=== PATIENT | female | born 1965 | race Caucasian/White ===

== ENCOUNTER 2021-10-27 18:22 | Inpatient (IN) | payer SELFPAY ==
[2021-10-27 18:34] LABS: #Basophils 0.1 thou/uL (0.0-0.2); #Eosinphils 0.2 thou/uL (0.0-0.7); #Lymphocytes 3.3 thou/uL (1.20-3.40); #Monocytes 0.5 thou/uL (0.11-0.59); #Neutrophils 3.7 thou/uL (1.40-6.50); %Basophils 1.1 % (0.0-1.0); %Eosinophils 2.5 % (0.0-10.0); %Lymphocytes 42.1 % (21.0-51.0); %Monocytes 6.8 % (0.0-10.0); %Neutrophils 47.5 % (42.0-75.0); Hemoglobin 12.9 g/dL (12.0-16.0); Mean Corpuscular HGB CONC 33.3 g/dL (32.0-36.0); Mean Corpuscular Hemoglobin 32.1 pg (27.0-31.0); Mean Corpuscular Volume 96.4 fL (78.0-98.0); Mean Platelet Volume 8.3 fL (7.4-10.4); Platelet Count 218 thou/uL (130-400); RBC Distribution Width 11.2 % (11.5-14.5); Red Blood Cell (RBC) Count 4.01 mill/uL (4.20-5.40); White Blood Cell (WBC) Count 7.9 thou/uL (4.8-10.8)
[2021-10-27] MEDS ORDERED: Rocuronium Bromide 10 MG/ML (10ML VIAL) ONE (18:35)
[2021-10-27] MEDS ORDERED: Propofol 1,000 MG/100 ML VIAL IV ONE (18:36)
[2021-10-27] MEDS ORDERED: niCARdipine 25 MG/10 ML VIAL ONE ×3 (18:52→19:26)
[2021-10-27 18:53] LABS: INR-International Normal Ratio 0.9; PTT 24.3 sec (22.9-36.1); Prothrombin Time 12.5 sec (12.0-14.7)
[2021-10-27 18:54] LABS: ALT (SGPT) 21 U/L (8-55); AST (SGOT) 18 U/L (5-34); Albumin 4.3 g/dL (3.5-5.0); Alkaline Phosphatase 81 U/L (40-110); Anion Gap 14 mmol/L (10-20); BUN (Urea Nitrogen) 14 mg/dL (9.8-20.1); Bilirubin, Total 0.6 mg/dL (0.2-1.2); CK (CPK) 64 U/L (29-168); Calc. Creatinine Clearance 0 mL/min (70-130); Calcium 9.7 mg/dL (7.8-10.44); Carbon Dioxide 24 mmol/L (22-29); Chloride 104 mmol/L (98-107); Globulin 2.8 g/dL (2.4-3.5); Glucose 191 mg/dL (70-105); Protein, Total 7.1 g/dL (6.0-8.3); Sodium 138 mmol/L (136-145)
[2021-10-27 19:13] LABS: Bilirubin Negative (Negative); Blood, Urine Negative (Negative); Clarity Turbid (Clear); Glucose, Urine (Dipstick) 100 mg/dL (Negative); Ketone, Urine Negative (Negative); Leukocyte 25 Leu/uL (Negative); Nitrite Negative (Negative); Protein, Urine (Dipstick) Negative (Neg-Trace); RBC/HPF 0-3 HPF (0-3); Urobilinogen Normal mg/dL (Less than 2)
[2021-10-27 19:14] LABS: Actual Bicarbonate (HCO3a) 26.2 mEq/L (22-28); Base Excess (BEa) 2.2 mEq/L (-2.0 to +3.0); CO2 Tension 38.5 mmHg (35.0-45.0); Calcium, Ionized (arterial) 1.18 mmol/L (1.12-1.30); Carboxyhemoglobin (COHb) 1.3 gm% (0.0-3.0); Hemoglobin (Hb) 12.6 g/dL (12.0-16.0); Potassium - ABG Lab 3.49 mmol/L (3.70-5.30); pH, Arterial 7.45 (7.35-7.45)
[2021-10-27 19:16] LABS: ALV-art Gradient -251.925 mmHg (0-20); O2 Tension (PaO2), arterial 560.3 mmHg (80.0-100.0)
[2021-10-27 19:21] LABS: Bacteria/HPF 1+ HPF (None Seen); Squamous Epithelial 0-3 HPF (0-3); WBC/HPF 0-3 HPF (0-3)
[2021-10-27] MEDS ORDERED: Lorazepam 2 MG/ML VIAL ONE ×3 (19:35→21:06)
[2021-10-27] MEDS ORDERED: Fentanyl 100 MCG/2 ML VIAL ONE ×2 (19:37→19:50)
[2021-10-27] MEDS ORDERED: fentaNYL Citrate/PF 2,000 MCG in Sodium Chloride 0.9% 60 ML IV SCH (20:00)
[2021-10-27] MEDS ORDERED: Midazolam HCl 5 mg/ml Vial ONE (20:26)
[2021-10-27] MEDS ORDERED: Midazolam HCl 2 mg/2 ml Vial ONE (20:27)
[2021-10-27] MEDS ORDERED: niCARdipine 25 MG in Sodium Chloride 0.9% 250 ML 250 ML IVPB SCH (20:30)
[2021-10-27] MEDS ORDERED: DISCONTINUE PREVIOUS NARCOTIC PAIN MEDICATIONS AND BENZODIAZEPINES FS SCH (20:30)
[2021-10-27] MEDS ORDERED: Propofol BOLUS 1,000 MG/100 ML VIAL IV PRN (20:30)
[2021-10-27] MEDS ORDERED: Propofol 1,000 MG/100 ML VIAL IV PRN (20:30)
[2021-10-27] MEDS ORDERED: Fentanyl BOLUS 250 ML IVPB PRN (20:30)
[2021-10-27] MEDS ORDERED: Morphine 4 MG/ML VIAL SLOW IVP PRN (20:30)
[2021-10-27] MEDS ORDERED: Ondansetron PF 4 MG/2 ML Vial IVP PRN (21:01)
[2021-10-27] MEDS ORDERED: Acetaminophen 650 MG Suppository PR PRN (21:01)
[2021-10-27] MEDS ORDERED: Ondansetron ODT 4 MG TAB PO PRN (21:01)
[2021-10-27] MEDS ORDERED: Ventilator Sedation Protocol 1 EACH FS SCH (21:15)
[2021-10-27 22:28] LABS: Troponin I Less than 0.010 ng/mL (< 0.028)
[2021-10-28 01:31] LABS: SARS-CoV-2 NAA Rapid Test Not Detected (NotDetected)
[2021-10-28 01:44] LABS: Troponin I Less than 0.010 ng/mL (< 0.028)
[2021-10-28] MEDS: Lorazepam 2 MG/ML VIAL SLOW IVP PRN (04:10)
[2021-10-28 06:05] LABS: #Lymphocytes 1.2 thou/uL (1.20-3.40); #Monocytes 0.7 thou/uL (0.11-0.59); #Neutrophils 10.5 thou/uL (1.40-6.50); %Basophils 0.2 % (0.0-1.0); %Monocytes 5.7 % (0.0-10.0); %Neutrophils 84.1 % (42.0-75.0); Mean Corpuscular HGB CONC 33.6 g/dL (32.0-36.0); Mean Corpuscular Hemoglobin 33.1 pg (27.0-31.0); Mean Corpuscular Volume 98.5 fL (78.0-98.0); Mean Platelet Volume 8.5 fL (7.4-10.4); Platelet Count 207 thou/uL (130-400); RBC Distribution Width 11.3 % (11.5-14.5); Red Blood Cell (RBC) Count 3.61 mill/uL (4.20-5.40); White Blood Cell (WBC) Count 12.5 thou/uL (4.8-10.8)
[2021-10-28 06:26] LABS: Anion Gap 14 mmol/L (10-20); BUN (Urea Nitrogen) 15 mg/dL (9.8-20.1); Calc. Creatinine Clearance 107 mL/min (70-130); Calcium 9.2 mg/dL (7.8-10.44); Carbon Dioxide 21 mmol/L (22-29); Cardiac Risk 4.5 (Less than 4.5); Chloride 104 mmol/L (98-107); Cholesterol 201 mg/dl (< 200 Desired); Glucose 249 mg/dL (70-105); HDL Cholesterol 45 mg/dL (>60 Neg Risk); LDL Cholesterol, Calculated 91 mg/dL; Potassium 3.9 mmol/L (3.5-5.1); Sodium 135 mmol/L (136-145); Triglycerides 324 mg/dL (Less than 150)
[2021-10-28] MEDS: niCARdipine 25 MG in Sodium Chloride 0.9% 250 ML 250 ML IVPB PRN (08:22)
[2021-10-28] MEDS: Pantoprazole 40 MG VIAL IVP SCH (08:32)
[2021-10-28] MEDS ORDERED: Dextrose 5% in Water 1,000 ML IV PRN (12:27)
[2021-10-28] MEDS ORDERED: Dextrose 50% Abboject 50 ML SYRINGE SLOW IVP PRN (12:27)
[2021-10-28] MEDS: Acetaminophen 325 MG TAB PO PRN (16:31)
[2021-10-28] MEDS: HumaLOG 300 UNITS/3 ML VIAL SC PRN ×2 (17:29→20:14)
[2021-10-29] MEDS: Acetaminophen 325 MG TAB PO PRN ×4 (01:20→12:10)
[2021-10-29] MEDS: HumaLOG 300 UNITS/3 ML VIAL SC PRN ×4 (01:28→19:01)
[2021-10-29] MEDS: niCARdipine 25 MG in Sodium Chloride 0.9% 250 ML 250 ML IVPB PRN ×2 (03:07→09:56)
[2021-10-29 03:47] LABS: #Lymphocytes 1.3 thou/uL (1.20-3.40); #Monocytes 1.3 thou/uL (0.11-0.59); #Neutrophils 13.8 thou/uL (1.40-6.50); %Basophils 0.1 % (0.0-1.0); %Eosinophils 0.1 % (0.0-10.0); %Lymphocytes 7.8 % (21.0-51.0); %Monocytes 7.7 % (0.0-10.0); %Neutrophils 84.3 % (42.0-75.0); Hemoglobin 12.5 g/dL (12.0-16.0); Mean Corpuscular HGB CONC 34.3 g/dL (32.0-36.0); Mean Corpuscular Hemoglobin 32.9 pg (27.0-31.0); Mean Corpuscular Volume 95.9 fL (78.0-98.0); Mean Platelet Volume 8.5 fL (7.4-10.4); Platelet Count 199 thou/uL (130-400); RBC Distribution Width 11.4 % (11.5-14.5); Red Blood Cell (RBC) Count 3.79 mill/uL (4.20-5.40); White Blood Cell (WBC) Count 16.3 thou/uL (4.8-10.8)
[2021-10-29 04:15] LABS: ALT (SGPT) 16 U/L (8-55); AST (SGOT) 15 U/L (5-34); Albumin 3.9 g/dL (3.5-5.0); Alkaline Phosphatase 77 U/L (40-110); Anion Gap 13 mmol/L (10-20); BUN (Urea Nitrogen) 17 mg/dL (9.8-20.1); Bilirubin, Total 0.8 mg/dL (0.2-1.2); Calc. Creatinine Clearance 107 mL/min (70-130); Calcium 9.4 mg/dL (7.8-10.44); Chloride 103 mmol/L (98-107); Glucose 304 mg/dL (70-105); Magnesium 1.9 mg/dL (1.6-2.6); Potassium 3.7 mmol/L (3.5-5.1); Protein, Total 6.9 g/dL (6.0-8.3); Sodium 134 mmol/L (136-145)
[2021-10-29 04:21] LABS: Carbon Dioxide 22 mmol/L (22-29)
[2021-10-29 07:54] LABS: Actual Bicarbonate (HCO3a) 24.1 mEq/L (22-28); Base Excess (BEa) 1.1 mEq/L (-2.0 to +3.0); CO2 Tension 33.8 mmHg (35.0-45.0); Hemoglobin (Hb) 14.8 g/dL (12.0-16.0); O2 Tension (PaO2), arterial 66.1 mmHg (80.0-100.0); Potassium - ABG Lab 3.42 mmol/L (3.70-5.30); pH, Arterial 7.47 (7.35-7.45)
[2021-10-29 08:09] LABS: Puncture Site RRA
[2021-10-29] MEDS: Pantoprazole 40 MG VIAL IVP SCH (08:12)
[2021-10-29] MEDS ORDERED: Mannitol 12.5 GM/50 ML SLOW IVP SCH (09:00)
[2021-10-29] MEDS ORDERED: Electrolyte Replacement Protocol 1 EACH FS PRN (09:14)
[2021-10-29] MEDS ORDERED: Iopamidol 370 76% 100 ML VIAL ONE (09:34)
[2021-10-29] MEDS ORDERED: Magnesium 2 GM/50 ML 2 GM in Premix Bag 1 BAG IVPB SCH (10:00)
[2021-10-29] MEDS: Lorazepam 2 MG/ML VIAL SLOW IVP PRN ×2 (11:44→16:06)
[2021-10-29 12:36] VITALS: BP 132/72
[2021-10-29 13:02] VITALS: BMI 31.4
[2021-10-29] MEDS: Norepinephrine 8 MG/0.9% NS 250 ML IVPB SCH (20:47)
[2021-10-29] MEDS: NPH, Human Insulin Isophane 300 UNIT/3 ML VIAL SC SCH (21:05)
[2021-10-30 03:47] LABS: #Eosinphils 0.1 thou/uL (0.0-0.7); #Lymphocytes 1.6 thou/uL (1.20-3.40); #Monocytes 1.7 thou/uL (0.11-0.59); %Basophils 0.2 % (0.0-1.0); %Eosinophils 0.3 % (0.0-10.0); %Lymphocytes 8.3 % (21.0-51.0); %Monocytes 8.9 % (0.0-10.0); %Neutrophils 82.4 % (42.0-75.0); Hemoglobin 13.8 g/dL (12.0-16.0); Mean Corpuscular HGB CONC 33.1 g/dL (32.0-36.0); Mean Corpuscular Volume 99.7 fL (78.0-98.0); Mean Platelet Volume 8.9 fL (7.4-10.4); Platelet Count 243 thou/uL (130-400); RBC Distribution Width 11.9 % (11.5-14.5); Red Blood Cell (RBC) Count 4.18 mill/uL (4.20-5.40); White Blood Cell (WBC) Count 19.4 thou/uL (4.8-10.8)
[2021-10-30] MEDS: Norepinephrine 8 MG/0.9% NS 250 ML IVPB SCH ×3 (05:07→22:57)
[2021-10-30] MEDS: HumaLOG 300 UNITS/3 ML VIAL SC PRN ×4 (05:29→20:12)
[2021-10-30 06:10] LABS: Albumin 4.2 g/dL (3.5-5.0)
[2021-10-30 06:12] LABS: Chloride 122 mmol/L (98-107)
[2021-10-30 06:13] LABS: Globulin 3.7 g/dL (2.4-3.5); Glucose 466 mg/dL (70-105); Protein, Total 7.9 g/dL (6.0-8.3)
[2021-10-30 06:15] LABS: Anion Gap 16 mmol/L (10-20); Bilirubin, Total 0.5 mg/dL (0.2-1.2); Carbon Dioxide 20 mmol/L (22-29)
[2021-10-30 06:16] LABS: Alkaline Phosphatase 97 U/L (40-110)
[2021-10-30 06:18] LABS: AST (SGOT) 29 U/L (5-34); BUN (Urea Nitrogen) 26 mg/dL (9.8-20.1)
[2021-10-30 06:19] LABS: ALT (SGPT) 20 U/L (8-55); Magnesium 3.1 mg/dL (1.6-2.6)
[2021-10-30 06:23] LABS: Calc. Creatinine Clearance 35 mL/min (70-130); Potassium 2.9 mmol/L (3.5-5.1); Sodium 155 mmol/L (136-145)
[2021-10-30] MEDS ORDERED: Sodium Chloride 0.9% 1,000 ML IV SCH (06:45)
[2021-10-30] MEDS: Potassium Chloride 40 MEQ in Premix Bag 1 BAG IVPB SCH ×2 (07:06→08:10)
[2021-10-30] MEDS: Pantoprazole 40 MG VIAL IVP SCH (08:05)
[2021-10-30] MEDS: NPH, Human Insulin Isophane 300 UNIT/3 ML VIAL SC SCH ×2 (08:05→20:12)
[2021-10-30] MEDS ORDERED: FLU VACC QS2021-22(6MOS UP)/PF 60 MCG/0.5 ML SYRINGE IM ONE (09:00)
[2021-10-30] MEDS: Dextrose 5 %-0.45 % NaCl 1,000 ML IV SCH ×2 (09:15→18:23)
[2021-10-30 14:16] LABS: Anion Gap 15 mmol/L (10-20); BUN (Urea Nitrogen) 26 mg/dL (9.8-20.1); Calc. Creatinine Clearance 40 mL/min (70-130); Calcium 10.3 mg/dL (7.8-10.44); Carbon Dioxide 19 mmol/L (22-29); Glucose 432 mg/dL (70-105); Sodium 157 mmol/L (136-145)
[2021-10-30 14:33] LABS: Chloride 127 mmol/L (98-107)
[2021-10-31] MEDS: HumaLOG 300 UNITS/3 ML VIAL SC PRN ×3 (00:46→14:35)
[2021-10-31] MEDS: Dextrose 5 %-0.45 % NaCl 1,000 ML IV SCH (00:46)
[2021-10-31 04:02] LABS: Hemoglobin 11.8 g/dL (12.0-16.0); Mean Corpuscular HGB CONC 33.2 g/dL (32.0-36.0); Mean Corpuscular Hemoglobin 33.5 pg (27.0-31.0); Mean Platelet Volume 9.2 fL (7.4-10.4); Platelet Count 172 thou/uL (130-400); RBC Distribution Width 12.2 % (11.5-14.5); Red Blood Cell (RBC) Count 3.53 mill/uL (4.20-5.40); White Blood Cell (WBC) Count 12.1 thou/uL (4.8-10.8)
[2021-10-31 04:34] LABS: Band 24 % (5-11); Eosinophils 4 % (0-10); Lymphocytes 17 % (21-51); MDiff Complete? YES; Monocytes 9 % (0-10); Neutrophil 46 % (42-75)
[2021-10-31 04:47] LABS: ALT (SGPT) 27 U/L (8-55); AST (SGOT) 37 U/L (5-34); Albumin 3.3 g/dL (3.5-5.0); Alkaline Phosphatase 106 U/L (40-110); Anion Gap 13 mmol/L (10-20); BUN (Urea Nitrogen) 20 mg/dL (9.8-20.1); Bilirubin, Total 0.3 mg/dL (0.2-1.2); Calc. Creatinine Clearance 56 mL/min (70-130); Carbon Dioxide 21 mmol/L (22-29); Globulin 3.3 g/dL (2.4-3.5); Glucose 318 mg/dL (70-105); Potassium 3.5 mmol/L (3.5-5.1); Protein, Total 6.6 g/dL (6.0-8.3); Sodium 159 mmol/L (136-145)
[2021-10-31 05:12] LABS: Chloride 129 mmol/L (98-107)
[2021-10-31 05:45] LABS: Magnesium 2.3 mg/dL (1.6-2.6)
[2021-10-31] MEDS ORDERED: Potassium Chloride 40 MEQ in Premix Bag 1 BAG IVPB SCH (06:30)
[2021-10-31] MEDS: Dextrose 5% in Water 1,000 ML IV SCH ×2 (06:46→14:53)
[2021-10-31] MEDS: Pantoprazole 40 MG VIAL IVP SCH (09:36)
[2021-10-31] MEDS: Norepinephrine 8 MG/0.9% NS 250 ML IVPB SCH (09:37)
[2021-10-31] MEDS: NPH, Human Insulin Isophane 300 UNIT/3 ML VIAL SC SCH (09:39)
[2021-10-31 13:44] LABS: Potassium 4.5 mmol/L (3.5-5.1)
[2021-10-31 14:43] VITALS: TEMP 98.4
== END 2021-10-31 12:08 | disposition expired | DRG 64 ==
LOC: ERS 18:22 → CCU 19:58 → IMCU/EMU 10-28 09:41 → CCU 10-28 09:43
PROVIDERS: ADMIT Student in an Organized Health Care Education/Training Program; ATTEND Internal Medicine
PROC: 5A1945Z Respiratory Ventilation, 24-96 Consecutive Hours (ICD-10-PCS; principal; 2021-10-27)
PROC: 0D9670Z Drainage of Stomach with Drainage Device, Via Natural or Artificial Opening (ICD-10-PCS; 2021-10-27)
PROC: 0BH17EZ Insertion of Endotracheal Airway into Trachea, Via Natural or Artificial Opening (ICD-10-PCS; 2021-10-27)
PROC: 3E033XZ Introduction of Vasopressor into Peripheral Vein, Percutaneous Approach (ICD-10-PCS; 2021-10-29)
PROC: 02HV33Z Insertion of Infusion Device into Superior Vena Cava, Percutaneous Approach (ICD-10-PCS; 2021-10-29)
PROC: B548ZZA Ultrasonography of Superior Vena Cava, Guidance (ICD-10-PCS; 2021-10-29)
PROC: 3E043XZ Introduction of Vasopressor into Central Vein, Percutaneous Approach (ICD-10-PCS; 2021-10-30)
PROC: 03HY32Z Insertion of Monitoring Device into Upper Artery, Percutaneous Approach (ICD-10-PCS; 2021-10-31)
PROC: 0B9J8ZX Drainage of Left Lower Lung Lobe, Via Natural or Artificial Opening Endoscopic, Diagnostic (ICD-10-PCS; 2021-10-31)
PROC: 0B9F8ZX Drainage of Right Lower Lung Lobe, Via Natural or Artificial Opening Endoscopic, Diagnostic (ICD-10-PCS; 2021-10-31)
DX: I61.1 Nontraumatic intracerebral hemorrhage in hemisphere, cortical (principal); G93.41 Metabolic encephalopathy; J96.00 Acute respiratory failure, unspecified whether with hypoxia or hypercapnia; G93.6 Cerebral edema; G93.5 Compression of brain; N17.9 Acute kidney failure, unspecified; G81.91 Hemiplegia, unspecified affecting right dominant side; I16.1 Hypertensive emergency; E23.2 Diabetes insipidus; Z66 Do not resuscitate; Z20.822 Contact with and (suspected) exposure to COVID-19; R29.810 Facial weakness; R47.81 Slurred speech; E78.5 Hyperlipidemia, unspecified; F17.210 Nicotine dependence, cigarettes, uncomplicated; E11.65 Type 2 diabetes mellitus with hyperglycemia; E86.0 Dehydration; I95.9 Hypotension, unspecified; Z78.1 Physical restraint status; Z28.21 Immunization not carried out because of patient refusal; Z91.19 Patient's noncompliance with other medical treatment and regimen
CPT/HCPCS: 31500; 36415; 36416; 36600; 51702; 70450; 70496; 71045; 78610; 80048; 80053; 80061; 81003; 81015; 82550; 82805; 83735; 83930; 84484; 85025; 85610; 85730; 93005; 93010; 94002; 94003; 96374; 96375; 96376; A9521; C9113; J1815; J2060; J2150; J2250; J2704; J3010; J3475; J3480; J3490; J7042; J7050; J7070; Q9967; U0002

== ENCOUNTER 2021-10-31 15:22 | Day surgery (SDC) | payer OTHER, SELFPAY ==
[2021-10-31 15:43] VITALS: BMI 32.2
[2021-10-31] MEDS ORDERED: Hydrocortisone Sod Succ/PF 500 mg/4 ml Vial SLOW IVP SCH (16:00)
[2021-10-31] MEDS: Sodium Chloride 0.45% 1,000 ML IV SCH ×2 (16:26→21:16)
[2021-10-31 17:19] LABS: Actual Bicarbonate (HCO3a) 22.2 mEq/L (22-28); CO2 Tension 44.6 mmHg (35.0-45.0); Carboxyhemoglobin (COHb) 0.3 gm% (0.0-3.0); O2 Tension (PaO2), arterial 468.6 mmHg (80.0-100.0); Potassium - ABG Lab 4.64 mmol/L (3.70-5.30); pH, Arterial 7.31 (7.35-7.45)
[2021-10-31] MEDS: Phytonadione 10 MG/ML AMP SLOW IVP SCH ×2 (17:21→20:24)
[2021-10-31 17:22] LABS: Puncture Site Arterial Line
[2021-10-31 18:06] LABS: Hemoglobin 11.2 g/dL (12.0-16.0); Hemoglobin 11.3 g/dL (12.0-16.0); Mean Corpuscular HGB CONC 32.6 g/dL (32.0-36.0); Mean Corpuscular Hemoglobin 33.4 pg (27.0-31.0); Platelet Count 160 thou/uL (130-400); RBC Distribution Width 12.5 % (11.5-14.5); Red Blood Cell (RBC) Count 3.36 mill/uL (4.20-5.40); White Blood Cell (WBC) Count 9.7 thou/uL (4.8-10.8)
[2021-10-31] MEDS: Piperacillin/Tazobactam 3.375 GM in Sodium Chloride 0.9% 100 ML IVPB SCH ×2 (18:09→23:08)
[2021-10-31 18:16] LABS: INR-International Normal Ratio 1.3; PTT 40.1 sec (22.9-36.1); Prothrombin Time 16.1 sec (12.0-14.7)
[2021-10-31 18:21] LABS: Band 31 % (5-11); Dohle Bodies SLIGHT; Eosinophils 4 % (0-10); Lymphocytes 12 % (21-51); MDiff Complete? YES; Macrocytosis SLIGHT = 6-15 cells (100X) (0-5/hpf); Metamyelocyte 9 % (0-0); Monocytes 6 % (0-10); Myelocyte 1 % (0-0); Neutrophil 37 % (42-75); Platelet Morphology Comment Appears Adequate; Polychromasia SLIGHT = 2-3 cells (100X) (0-2/hpf); Vacuoles SLIGHT
[2021-10-31 18:22] LABS: Lactic Acid 1.2 mmol/L (0.5-2.2)
[2021-10-31 18:24] LABS: Bilirubin Negative (Negative); Blood, Urine 3+ (Negative); Clarity Turbid (Clear); Glucose, Urine (Dipstick) 30 mg/dL (Negative); Ketone, Urine Negative (Negative); Leukocyte 250 Leu/uL (Negative); Nitrite Negative (Negative); Protein, Urine (Dipstick) 70 mg/dL (Neg-Trace); Specific Gravity, Urine 1.009 (1.002-1.036); Urobilinogen Normal mg/dL (Less than 2); pH, Urine 5.5 (5.0-9.0)
[2021-10-31 18:26] LABS: ALT (SGPT) 29 U/L (8-55); AST (SGOT) 32 U/L (5-34); Albumin 3.1 g/dL (3.5-5.0); Alkaline Phosphatase 115 U/L (40-110); Anion Gap 12 mmol/L (10-20); BUN (Urea Nitrogen) 19 mg/dL (9.8-20.1); Bilirubin, Direct 0.3 mg/dL (0.1-0.3); Bilirubin, Total 0.5 mg/dL (0.2-1.2); CK (CPK) 999 U/L (29-168); Calc. Creatinine Clearance 73 mL/min (70-130); Calcium 9.7 mg/dL (7.8-10.44); Carbon Dioxide 22 mmol/L (22-29); Globulin 3.2 g/dL (2.4-3.5); Glucose 173 mg/dL (70-105); Lipase 5 U/L (8-78); Phosphorus 3.2 mg/dL (2.3-4.7); Potassium 4.6 mmol/L (3.5-5.1); Protein, Total 6.3 g/dL (6.0-8.3); Sodium 155 mmol/L (136-145)
[2021-10-31 18:30] LABS: Troponin I 0.016 ng/mL (< 0.028)
[2021-10-31 18:42] LABS: CKMB 8.3 ng/mL (0-6.6); Chloride 126 mmol/L (98-107)
[2021-10-31] MEDS ORDERED: Magnesium 2 GM/50 ML 2 GM in Premix Bag 1 BAG IVPB SCH (18:45)
[2021-10-31] MEDS ORDERED: Norepinephrine 8 MG/0.9% NS 250 ML IVPB SCH (19:00)
[2021-10-31] MEDS: Albuterol Sulfate 2.5 mg/0.5 ml Neb NEB SCH ×2 (19:16→22:55)
[2021-10-31 20:02] LABS: Hemoglobin 11.9 g/dL (12.0-16.0); Mean Corpuscular HGB CONC 32.6 g/dL (32.0-36.0); Mean Corpuscular Hemoglobin 33.5 pg (27.0-31.0); Mean Platelet Volume 8.8 fL (7.4-10.4); Platelet Count 167 thou/uL (130-400); RBC Distribution Width 12.5 % (11.5-14.5); Red Blood Cell (RBC) Count 3.55 mill/uL (4.20-5.40)
[2021-10-31 20:08] LABS: INR-International Normal Ratio 1.3; PTT 40.2 sec (22.9-36.1); Prothrombin Time 16.1 sec (12.0-14.7)
[2021-10-31 20:12] LABS: Lactic Acid 1.4 mmol/L (0.5-2.2)
[2021-10-31 20:18] LABS: ALT (SGPT) 28 U/L (8-55); AST (SGOT) 31 U/L (5-34); Albumin 3.2 g/dL (3.5-5.0); Alkaline Phosphatase 117 U/L (40-110); Anion Gap 15 mmol/L (10-20); BUN (Urea Nitrogen) 19 mg/dL (9.8-20.1); Bilirubin, Direct 0.4 mg/dL (0.1-0.3); Bilirubin, Total 0.7 mg/dL (0.2-1.2); CK (CPK) 974 U/L (29-168); Calc. Creatinine Clearance 68 mL/min (70-130); Calcium 9.6 mg/dL (7.8-10.44); Carbon Dioxide 20 mmol/L (22-29); Chloride 124 mmol/L (98-107); Globulin 3.4 g/dL (2.4-3.5); Glucose 190 mg/dL (70-105); Lipase 6 U/L (8-78); Magnesium 1.8 mg/dL (1.6-2.6); Phosphorus 3.5 mg/dL (2.3-4.7); Potassium 4.8 mmol/L (3.5-5.1); Protein, Total 6.6 g/dL (6.0-8.3); Sodium 154 mmol/L (136-145)
[2021-10-31 20:20] LABS: Troponin I 0.024 ng/mL (< 0.028)
[2021-10-31 20:24] LABS: CKMB 8.6 ng/mL (0-6.6)
[2021-10-31] MEDS: Vasopressin 20 UNIT, Admixture Fee 1 EACH in Sodium Chloride 0.9% 50 ML IV SCH (20:39)
[2021-10-31 20:40] LABS: Band 36 % (5-11); Eosinophils 9 % (0-10); Lymphocytes 17 % (21-51); MDiff Complete? YES; Macrocytosis SLIGHT = 6-15 cells (100X) (0-5/hpf); Metamyelocyte 9 % (0-0); Monocytes 5 % (0-10); Myelocyte 4 % (0-0); Neutrophil 20 % (42-75); Platelet Morphology Comment Appears Adequate; Polychromasia SLIGHT = 2-3 cells (100X) (0-2/hpf)
[2021-10-31] MEDS: HUMULIN R 100 UNITS in Sodium Chloride 0.9% 100 ML IVPB SCH (20:40)
[2021-10-31] MEDS: Hydrocortisone Sod Succ/PF 100 mg/2 ml Vial IVP SCH (21:16)
[2021-10-31 23:43] LABS: Actual Bicarbonate (HCO3a) 20.8 mEq/L (22-28); Base Excess (BEa) -5.7 mEq/L (-2.0 to +3.0); CO2 Tension 45.2 mmHg (35.0-45.0); Calcium, Ionized (arterial) 1.28 mmol/L (1.12-1.30); Carboxyhemoglobin (COHb) 0.3 gm% (0.0-3.0); Hemoglobin (Hb) 11.3 g/dL (12.0-16.0); O2 Tension (PaO2), arterial 99.3 mmHg (80.0-100.0); Potassium - ABG Lab 4.91 mmol/L (3.70-5.30); pH, Arterial 7.28 (7.35-7.45)
[2021-10-31 23:44] LABS: Puncture Site Arterial Line
[2021-11-01 00:22] LABS: Actual Bicarbonate (HCO3a) 20.9 mEq/L (22-28); Base Excess (BEa) -5.7 mEq/L (-2.0 to +3.0); CO2 Tension 45.8 mmHg (35.0-45.0); Calcium, Ionized (arterial) 1.28 mmol/L (1.12-1.30); Carboxyhemoglobin (COHb) 0.3 gm% (0.0-3.0); Hemoglobin (Hb) 11.5 g/dL (12.0-16.0); O2 Tension (PaO2), arterial 199.2 mmHg (80.0-100.0); Potassium - ABG Lab 4.95 mmol/L (3.70-5.30); pH, Arterial 7.28 (7.35-7.45)
[2021-11-01 00:23] LABS: Puncture Site A LINE
[2021-11-01] MEDS: Magnesium 2 GM/50 ML 2 GM in Premix Bag 1 BAG IVPB SCH (01:12)
[2021-11-01] MEDS: Vasopressin 20 UNIT, Admixture Fee 1 EACH in Sodium Chloride 0.9% 50 ML IV SCH (03:07)
[2021-11-01] MEDS: Albuterol Sulfate 2.5 mg/0.5 ml Neb NEB SCH ×6 (03:14→22:27)
[2021-11-01 04:32] LABS: Hemoglobin 9.7 g/dL (12.0-16.0); Mean Corpuscular HGB CONC 30.4 g/dL (32.0-36.0); Mean Corpuscular Hemoglobin 31.1 pg (27.0-31.0); Mean Platelet Volume 8.9 fL (7.4-10.4); Platelet Count 131 thou/uL (130-400); RBC Distribution Width 12.3 % (11.5-14.5); Red Blood Cell (RBC) Count 3.11 mill/uL (4.20-5.40); White Blood Cell (WBC) Count 9.2 thou/uL (4.8-10.8)
[2021-11-01 04:42] LABS: INR-International Normal Ratio 1.3; PTT 45.1 sec (22.9-36.1); Prothrombin Time 16.2 sec (12.0-14.7)
[2021-11-01 04:53] LABS: Band 34 % (5-11); Lymphocytes 16 % (21-51); MDiff Complete? YES; Macrocytosis SLIGHT = 6-15 cells (100X) (0-5/hpf); Metamyelocyte 11 % (0-0); Monocytes 6 % (0-10); Myelocyte 2 % (0-0); Neutrophil 31 % (42-75); Nucleated RBC 1 % (0); Platelet Morphology Comment Appears Adequate
[2021-11-01 05:03] LABS: Lactic Acid 1.2 mmol/L (0.5-2.2)
[2021-11-01 05:05] LABS: ALT (SGPT) 27 U/L (8-55); AST (SGOT) 28 U/L (5-34); Albumin 2.8 g/dL (3.5-5.0); Alkaline Phosphatase 109 U/L (40-110); Anion Gap 13 mmol/L (10-20); BUN (Urea Nitrogen) 22 mg/dL (9.8-20.1); Bilirubin, Direct 0.3 mg/dL (0.1-0.3); Bilirubin, Total 0.4 mg/dL (0.2-1.2); CK (CPK) 598 U/L (29-168); Calc. Creatinine Clearance 76 mL/min (70-130); Carbon Dioxide 20 mmol/L (22-29); Chloride 119 mmol/L (98-107); Glucose 178 mg/dL (70-105); Lipase Less than 4 U/L (8-78); Magnesium 3.8 mg/dL (1.6-2.6); Phosphorus 3.6 mg/dL (2.3-4.7); Potassium 5.5 mmol/L (3.5-5.1); Protein, Total 5.8 g/dL (6.0-8.3); Sodium 146 mmol/L (136-145)
[2021-11-01 05:14] LABS: CKMB 4.7 ng/mL (0-6.6); Troponin I Less than 0.010 ng/mL (< 0.028)
[2021-11-01] MEDS: Sodium Chloride 0.45% 1,000 ML IV SCH ×2 (05:28→12:22)
[2021-11-01] MEDS: Hydrocortisone Sod Succ/PF 100 mg/2 ml Vial IVP SCH ×3 (05:28→21:28)
[2021-11-01] MEDS: Piperacillin/Tazobactam 3.375 GM in Sodium Chloride 0.9% 100 ML IVPB SCH ×3 (05:28→17:29)
[2021-11-01] MEDS ORDERED: Albumin 25% 25 GM/100 ML BOT IVPB SCH (05:45)
[2021-11-01 07:25] LABS: Actual Bicarbonate (HCO3a) 20.1 mEq/L (22-28); Base Excess (BEa) -5.7 mEq/L (-2.0 to +3.0); CO2 Tension 40.8 mmHg (35.0-45.0); Calcium, Ionized (arterial) 1.24 mmol/L (1.12-1.30); Carboxyhemoglobin (COHb) 0.3 gm% (0.0-3.0); Hemoglobin (Hb) 10.5 g/dL (12.0-16.0); Potassium - ABG Lab 5.35 mmol/L (3.70-5.30); pH, Arterial 7.31 (7.35-7.45)
[2021-11-01 07:41] LABS: Puncture Site Arterial Line
[2021-11-01 08:17] LABS: Bilirubin Negative (Negative); Blood, Urine 2+ (Negative); Clarity Turbid (Clear); Glucose, Urine (Dipstick) 100 mg/dL (Negative); Ketone, Urine Negative (Negative); Leukocyte 250 Leu/uL (Negative); Nitrite Negative (Negative); Protein, Urine (Dipstick) 50 mg/dL (Neg-Trace); Specific Gravity, Urine 1.019 (1.002-1.036); Urobilinogen Normal mg/dL (Less than 2)
[2021-11-01] MEDS ORDERED: Iopamidol 370 76% 100 ML VIAL ONE (08:38)
[2021-11-01 10:06] LABS: Hemoglobin 9.4 g/dL (12.0-16.0); Mean Corpuscular HGB CONC 31.2 g/dL (32.0-36.0); Mean Corpuscular Hemoglobin 32.2 pg (27.0-31.0); Mean Platelet Volume 9.4 fL (7.4-10.4); Platelet Count 126 thou/uL (130-400); RBC Distribution Width 12.6 % (11.5-14.5); Red Blood Cell (RBC) Count 2.93 mill/uL (4.20-5.40); White Blood Cell (WBC) Count 10.1 thou/uL (4.8-10.8)
[2021-11-01 10:20] LABS: Actual Bicarbonate (HCO3a) 19.9 mEq/L (22-28); Base Excess (BEa) -5.9 mEq/L (-2.0 to +3.0); CO2 Tension 40.3 mmHg (35.0-45.0); Calcium, Ionized (arterial) 1.26 mmol/L (1.12-1.30); Carboxyhemoglobin (COHb) 0.3 gm% (0.0-3.0); Hemoglobin (Hb) 9.9 g/dL (12.0-16.0); Potassium - ABG Lab 4.43 mmol/L (3.70-5.30); Puncture Site Arterial Line; pH, Arterial 7.31 (7.35-7.45)
[2021-11-01 10:22] LABS: ALV-art Gradient 406.625 mmHg (0-20)
[2021-11-01 10:28] LABS: INR-International Normal Ratio 1.4; Prothrombin Time 17.2 sec (12.0-14.7)
[2021-11-01 10:33] LABS: Lactic Acid 3.3 mmol/L (0.5-2.2)
[2021-11-01 10:43] LABS: CKMB 4.5 ng/mL (0-6.6); Troponin I Less than 0.010 ng/mL (< 0.028)
[2021-11-01 10:46] LABS: ALT (SGPT) 26 U/L (8-55); AST (SGOT) 31 U/L (5-34); Albumin 3.2 g/dL (3.5-5.0); Alkaline Phosphatase 117 U/L (40-110); Anion Gap 14 mmol/L (10-20); BUN (Urea Nitrogen) 22 mg/dL (9.8-20.1); Bilirubin, Direct 0.4 mg/dL (0.1-0.3); Bilirubin, Total 0.6 mg/dL (0.2-1.2); CK (CPK) 536 U/L (29-168); Calc. Creatinine Clearance 74 mL/min (70-130); Calcium 9.1 mg/dL (7.8-10.44); Carbon Dioxide 20 mmol/L (22-29); Chloride 118 mmol/L (98-107); Globulin 2.9 g/dL (2.4-3.5); Glucose 213 mg/dL (70-105); Lipase Less than 4 U/L (8-78); Phosphorus 4.2 mg/dL (2.3-4.7); Potassium 4.5 mmol/L (3.5-5.1); Protein, Total 6.1 g/dL (6.0-8.3); Sodium 147 mmol/L (136-145)
[2021-11-01] MEDS ORDERED: Lidocaine 1% (PF) 30 ML VIAL ONE (10:46)
[2021-11-01 10:47] LABS: Band 55 % (5-11); Eosinophils 1 % (0-10); Lymphocytes 17 % (21-51); MDiff Complete? YES; Metamyelocyte 4 % (0-0); Monocytes 4 % (0-10); Neutrophil 19 % (42-75); Platelet Morphology Comment Appears Decreased; Polychromasia SLIGHT = 2-3 cells (100X) (0-2/hpf)
[2021-11-01] MEDS ORDERED: Sodium Chloride 0.9% 200 ML IV PRN (12:28)
[2021-11-01] MEDS ORDERED: Nitroglycerin 0.4 MG TAB (25 Tab Bottle) SL PRN (12:28)
[2021-11-01] MEDS ORDERED: Acetaminophen/Codeine 30-300mg Tablet PO PRN ×2 (12:28)
[2021-11-01 16:08] LABS: Hemoglobin 9.2 g/dL (12.0-16.0)
[2021-11-01 16:22] LABS: Lactic Acid 2.3 mmol/L (0.5-2.2)
[2021-11-01] MEDS: HUMULIN R 100 UNITS in Sodium Chloride 0.9% 100 ML IVPB SCH (17:30)
[2021-11-01 18:01] LABS: Hemoglobin 9.3 g/dL (12.0-16.0); Mean Corpuscular HGB CONC 30.8 g/dL (32.0-36.0); Mean Corpuscular Hemoglobin 31.6 pg (27.0-31.0); Mean Platelet Volume 8.5 fL (7.4-10.4); Platelet Count 122 thou/uL (130-400); RBC Distribution Width 12.5 % (11.5-14.5); Red Blood Cell (RBC) Count 2.92 mill/uL (4.20-5.40); White Blood Cell (WBC) Count 9.6 thou/uL (4.8-10.8)
[2021-11-01 18:09] LABS: INR-International Normal Ratio 1.3; PTT 42.2 sec (22.9-36.1); Prothrombin Time 16.3 sec (12.0-14.7)
[2021-11-01 18:22] LABS: Band 32 % (5-11); Lymphocytes 10 % (21-51); MDiff Complete? YES; Macrocytosis SLIGHT = 6-15 cells (100X) (0-5/hpf); Metamyelocyte 2 % (0-0); Monocytes 1 % (0-10); Neutrophil 54 % (42-75); Nucleated RBC 1 % (0); Platelet Morphology Comment Appears Decreased; Polychromasia SLIGHT = 2-3 cells (100X) (0-2/hpf)
[2021-11-01 18:38] LABS: CKMB 3.6 ng/mL (0-6.6); Troponin I Less than 0.010 ng/mL (< 0.028)
[2021-11-01 18:39] LABS: ALT (SGPT) 26 U/L (8-55); AST (SGOT) 27 U/L (5-34); Albumin 3.1 g/dL (3.5-5.0); Alkaline Phosphatase 126 U/L (40-110); Anion Gap 13 mmol/L (10-20); BUN (Urea Nitrogen) 21 mg/dL (9.8-20.1); Bilirubin, Direct 0.3 mg/dL (0.1-0.3); Bilirubin, Total 0.5 mg/dL (0.2-1.2); CK (CPK) 490 U/L (29-168); Calc. Creatinine Clearance 85 mL/min (70-130); Calcium 9.5 mg/dL (7.8-10.44); Carbon Dioxide 20 mmol/L (22-29); Chloride 122 mmol/L (98-107); Globulin 3.1 g/dL (2.4-3.5); Glucose 160 mg/dL (70-105); Lipase Less than 4 U/L (8-78); Phosphorus 2.9 mg/dL (2.3-4.7); Potassium 3.7 mmol/L (3.5-5.1); Protein, Total 6.2 g/dL (6.0-8.3); Sodium 151 mmol/L (136-145)
[2021-11-01 19:32] LABS: Actual Bicarbonate (HCO3a) 21.8 mEq/L (22-28); Base Excess (BEa) -3.5 mEq/L (-2.0 to +3.0); CO2 Tension 40.2 mmHg (35.0-45.0); Carboxyhemoglobin (COHb) 0.3 gm% (0.0-3.0); Hemoglobin (Hb) 9.5 g/dL (12.0-16.0); O2 Tension (PaO2), arterial 345.9 mmHg (80.0-100.0); Potassium - ABG Lab 3.55 mmol/L (3.70-5.30); pH, Arterial 7.35 (7.35-7.45)
[2021-11-01 19:35] LABS: Puncture Site Arterial Line
[2021-11-01 23:34] LABS: Actual Bicarbonate (HCO3a) 22.7 mEq/L (22-28); Base Excess (BEa) -3.8 mEq/L (-2.0 to +3.0); CO2 Tension 47.7 mmHg (35.0-45.0); Calcium, Ionized (arterial) 1.29 mmol/L (1.12-1.30); Carboxyhemoglobin (COHb) 0.1 gm% (0.0-3.0); Hemoglobin (Hb) 9.4 g/dL (12.0-16.0); O2 Tension (PaO2), arterial 370.9 mmHg (80.0-100.0)
[2021-11-01 23:35] LABS: Puncture Site Arterial Line
[2021-11-01 23:36] LABS: ALV-art Gradient 282.475 mmHg (0-20)
[2021-11-02 00:03] LABS: #Lymphocytes 0.9 thou/uL (1.20-3.40); #Monocytes 0.5 thou/uL (0.11-0.59); #Neutrophils 8.5 thou/uL (1.40-6.50); %Eosinophils 0.1 % (0.0-10.0); %Lymphocytes 8.8 % (21.0-51.0); %Monocytes 5.3 % (0.0-10.0); %Neutrophils 85.9 % (42.0-75.0); Hemoglobin 9.2 g/dL (12.0-16.0); Mean Corpuscular HGB CONC 31.3 g/dL (32.0-36.0); Mean Corpuscular Hemoglobin 32.2 pg (27.0-31.0); Mean Platelet Volume 8.6 fL (7.4-10.4); Platelet Count 119 thou/uL (130-400); RBC Distribution Width 12.5 % (11.5-14.5); Red Blood Cell (RBC) Count 2.85 mill/uL (4.20-5.40); White Blood Cell (WBC) Count 9.9 thou/uL (4.8-10.8)
[2021-11-02] MEDS: Piperacillin/Tazobactam 3.375 GM in Sodium Chloride 0.9% 100 ML IVPB SCH ×4 (00:04→20:05)
[2021-11-02 00:17] LABS: INR-International Normal Ratio 1.3; PTT 37.7 sec (22.9-36.1)
[2021-11-02 00:22] LABS: Bilirubin Negative (Negative); Blood, Urine 1+ (Negative); Clarity Extra Turbid (Clear); Glucose, Urine (Dipstick) Normal (Negative); Ketone, Urine Negative (Negative); Leukocyte Negative Leu/uL (Negative); Nitrite Negative (Negative); Protein, Urine (Dipstick) 50 mg/dL (Neg-Trace); Urobilinogen Normal mg/dL (Less than 2)
[2021-11-02 00:29] LABS: CKMB 2.8 ng/mL (0-6.6); Troponin I 0.013 ng/mL (< 0.028)
[2021-11-02] MEDS: Sodium Chloride 0.45% 1,000 ML IV SCH ×2 (00:35→08:12)
[2021-11-02 01:17] LABS: ALT (SGPT) 26 U/L (8-55); AST (SGOT) 28 U/L (5-34); Albumin 2.9 g/dL (3.5-5.0); Alkaline Phosphatase 122 U/L (40-110); Anion Gap 12 mmol/L (10-20); BUN (Urea Nitrogen) 23 mg/dL (9.8-20.1); Bilirubin, Direct 0.3 mg/dL (0.1-0.3); Bilirubin, Total 0.4 mg/dL (0.2-1.2); CK (CPK) 383 U/L (29-168); Calc. Creatinine Clearance 83 mL/min (70-130); Calcium 9.4 mg/dL (7.8-10.44); Carbon Dioxide 21 mmol/L (22-29); Chloride 122 mmol/L (98-107); Globulin 2.9 g/dL (2.4-3.5); Glucose 154 mg/dL (70-105); Lipase Less than 4 U/L (8-78); Magnesium 3.1 mg/dL (1.6-2.6); Phosphorus 4.8 mg/dL (2.3-4.7); Potassium 3.5 mmol/L (3.5-5.1); Protein, Total 5.8 g/dL (6.0-8.3); Sodium 151 mmol/L (136-145)
[2021-11-02] MEDS ORDERED: Potassium Chloride 20 MEQ in Premix Bag 1 BAG IVPB SCH (02:15)
[2021-11-02] MEDS: Albuterol Sulfate 2.5 mg/0.5 ml Neb NEB SCH ×5 (02:37→18:55)
[2021-11-02 03:35] LABS: Actual Bicarbonate (HCO3a) 21.7 mEq/L (22-28); Base Excess (BEa) -2.8 mEq/L (-2.0 to +3.0); CO2 Tension 36.5 mmHg (35.0-45.0); Calcium, Ionized (arterial) 1.28 mmol/L (1.12-1.30); Carboxyhemoglobin (COHb) 0.1 gm% (0.0-3.0); Hemoglobin (Hb) 9.2 g/dL (12.0-16.0); O2 Tension (PaO2), arterial 318.5 mmHg (80.0-100.0); Potassium - ABG Lab 3.33 mmol/L (3.70-5.30); pH, Arterial 7.39 (7.35-7.45)
[2021-11-02 03:36] LABS: ALV-art Gradient 348.875 mmHg (0-20); Puncture Site Arterial Line
[2021-11-02] MEDS: Hydrocortisone Sod Succ/PF 100 mg/2 ml Vial IVP SCH ×2 (05:52→13:21)
[2021-11-02 06:06] LABS: Hemoglobin 8.9 g/dL (12.0-16.0); Hypochromia SLIGHT = 6-15 cells (100X) (0-5/hpf); Lymphocytes 27 % (21-51); MDiff Complete? YES; Macrocytosis SLIGHT = 6-15 cells (100X) (0-5/hpf); Mean Corpuscular HGB CONC 32.1 g/dL (32.0-36.0); Mean Corpuscular Hemoglobin 32.8 pg (27.0-31.0); Mean Platelet Volume 8.6 fL (7.4-10.4); Neutrophil 73 % (42-75); Platelet Count 126 thou/uL (130-400); Platelet Morphology Comment Appears Adequate; RBC Distribution Width 12.4 % (11.5-14.5); Red Blood Cell (RBC) Count 2.71 mill/uL (4.20-5.40); White Blood Cell (WBC) Count 10.7 thou/uL (4.8-10.8)
[2021-11-02 06:08] LABS: INR-International Normal Ratio 1.2; PTT 37.8 sec (22.9-36.1); Prothrombin Time 15.3 sec (12.0-14.7)
[2021-11-02 06:14] LABS: Lactic Acid 0.8 mmol/L (0.5-2.2)
[2021-11-02 06:23] LABS: CKMB 4.5 ng/mL (0-6.6)
[2021-11-02 06:27] LABS: ALT (SGPT) 25 U/L (8-55); AST (SGOT) 28 U/L (5-34); Albumin 2.8 g/dL (3.5-5.0); Alkaline Phosphatase 114 U/L (40-110); Anion Gap 8 mmol/L (10-20); BUN (Urea Nitrogen) 22 mg/dL (9.8-20.1); Bilirubin, Direct 0.3 mg/dL (0.1-0.3); Bilirubin, Total 0.4 mg/dL (0.2-1.2); CK (CPK) 429 U/L (29-168); Calc. Creatinine Clearance 89 mL/min (70-130); Calcium 9.3 mg/dL (7.8-10.44); Carbon Dioxide 22 mmol/L (22-29); Chloride 123 mmol/L (98-107); Globulin 2.9 g/dL (2.4-3.5); Glucose 116 mg/dL (70-105); Lipase Less than 4 U/L (8-78); Magnesium 3.1 mg/dL (1.6-2.6); Phosphorus 3.1 mg/dL (2.3-4.7); Potassium 3.4 mmol/L (3.5-5.1); Protein, Total 5.7 g/dL (6.0-8.3); Sodium 150 mmol/L (136-145)
[2021-11-02] MEDS ORDERED: Potassium Chloride 40 MEQ in Premix Bag 1 BAG IVPB SCH (08:00)
[2021-11-02 09:27] LABS: Bilirubin Negative (Negative); Blood, Urine 2+ (Negative); Clarity Turbid (Clear); Glucose, Urine (Dipstick) Normal (Negative); Ketone, Urine Negative (Negative); Leukocyte 25 Leu/uL (Negative); Nitrite Negative (Negative); Protein, Urine (Dipstick) 50 mg/dL (Neg-Trace); RBC/HPF 0-3 HPF (0-3); Specific Gravity, Urine 1.019 (1.002-1.036); Squamous Epithelial 0-3 HPF (0-3); Urobilinogen Normal mg/dL (Less than 2); pH, Urine 5.5 (5.0-9.0)
[2021-11-02 09:42] LABS: Bacteria/HPF 1+ HPF (None Seen)
[2021-11-02] MEDS ORDERED: Furosemide 20 MG/2 ML VIAL SLOW IVP SCH (11:30)
[2021-11-02 12:17] LABS: Lactic Acid 0.5 mmol/L (0.5-2.2)
[2021-11-02 12:22] LABS: Hemoglobin 9.1 g/dL (12.0-16.0); Mean Corpuscular HGB CONC 31.7 g/dL (32.0-36.0); Mean Corpuscular Hemoglobin 32.1 pg (27.0-31.0); Platelet Count 126 thou/uL (130-400); RBC Distribution Width 12.6 % (11.5-14.5); Red Blood Cell (RBC) Count 2.83 mill/uL (4.20-5.40); White Blood Cell (WBC) Count 11.9 thou/uL (4.8-10.8)
[2021-11-02 12:25] LABS: INR-International Normal Ratio 1.2; Prothrombin Time 15.2 sec (12.0-14.7)
[2021-11-02 12:26] LABS: PTT 39.3 sec (22.9-36.1)
[2021-11-02 12:33] LABS: CKMB 3.5 ng/mL (0-6.6)
[2021-11-02 12:41] LABS: Actual Bicarbonate (HCO3a) 20.2 mEq/L (22-28); Base Excess (BEa) -4.1 mEq/L (-2.0 to +3.0); CO2 Tension 34.2 mmHg (35.0-45.0); Calcium, Ionized (arterial) 1.28 mmol/L (1.12-1.30); Carboxyhemoglobin (COHb) 0.3 gm% (0.0-3.0); Hemoglobin (Hb) 9.7 g/dL (12.0-16.0); O2 Tension (PaO2), arterial 229.6 mmHg (80.0-100.0); Potassium - ABG Lab 4.57 mmol/L (3.70-5.30); pH, Arterial 7.39 (7.35-7.45)
[2021-11-02 12:44] LABS: Puncture Site Arterial Line
[2021-11-02 12:50] LABS: ALT (SGPT) 27 U/L (8-55); AST (SGOT) 31 U/L (5-34); Alkaline Phosphatase 130 U/L (40-110); Anion Gap 12 mmol/L (10-20); BUN (Urea Nitrogen) 25 mg/dL (9.8-20.1); Bilirubin, Direct 0.3 mg/dL (0.1-0.3); Bilirubin, Total 0.5 mg/dL (0.2-1.2); CK (CPK) 371 U/L (29-168); Calc. Creatinine Clearance 83 mL/min (70-130); Calcium 9.4 mg/dL (7.8-10.44); Carbon Dioxide 20 mmol/L (22-29); Chloride 122 mmol/L (98-107); Glucose 152 mg/dL (70-105); Lipase Less than 4 U/L (8-78); Magnesium 3.1 mg/dL (1.6-2.6); Phosphorus 3.9 mg/dL (2.3-4.7); Potassium 4.6 mmol/L (3.5-5.1); Sodium 149 mmol/L (136-145)
[2021-11-02 12:50] LABS: Bilirubin Negative (Negative); Blood, Urine Trace (Negative); Clarity Turbid (Clear); Glucose, Urine (Dipstick) Normal (Negative); Ketone, Urine Negative (Negative); Leukocyte Negative Leu/uL (Negative); Nitrite Negative (Negative); Protein, Urine (Dipstick) 10 mg/dL (Neg-Trace); RBC/HPF 0-3 HPF (0-3); Specific Gravity, Urine 1.011 (1.002-1.036); Squamous Epithelial 0-3 HPF (0-3); Urobilinogen Normal mg/dL (Less than 2); WBC/HPF 0-3 HPF (0-3)
[2021-11-02 12:52] LABS: Bacteria/HPF 1+ HPF (None Seen)
[2021-11-02 13:23] LABS: Band 22 % (5-11); Lymphocytes 10 % (21-51); MDiff Complete? YES; Monocytes 4 % (0-10); Neutrophil 64 % (42-75); Nucleated RBC 1 % (0); Platelet Morphology Comment Appears Decreased; Polychromasia SLIGHT = 2-3 cells (100X) (0-2/hpf)
[2021-11-02 14:48] VITALS: BP 167/84
[2021-11-02] MEDS ORDERED: Furosemide 40 MG/4 ML VIAL SLOW IVP SCH (16:00)
[2021-11-02 16:32] LABS: Actual Bicarbonate (HCO3a) 22.2 mEq/L (22-28); CO2 Tension 35.8 mmHg (35.0-45.0); Calcium, Ionized (arterial) 1.26 mmol/L (1.12-1.30); Carboxyhemoglobin (COHb) 0.3 gm% (0.0-3.0); Hemoglobin (Hb) 10.2 g/dL (12.0-16.0); O2 Tension (PaO2), arterial 230.6 mmHg (80.0-100.0); Potassium - ABG Lab 4.39 mmol/L (3.70-5.30); pH, Arterial 7.41 (7.35-7.45)
[2021-11-02 16:36] LABS: Puncture Site Arterial Line
[2021-11-02 18:08] LABS: Hemoglobin 9.6 g/dL (12.0-16.0); Mean Corpuscular HGB CONC 31.2 g/dL (32.0-36.0); Mean Corpuscular Hemoglobin 31.4 pg (27.0-31.0); Platelet Count 151 thou/uL (130-400); RBC Distribution Width 12.6 % (11.5-14.5); Red Blood Cell (RBC) Count 3.04 mill/uL (4.20-5.40); White Blood Cell (WBC) Count 11.8 thou/uL (4.8-10.8)
[2021-11-02 18:22] LABS: INR-International Normal Ratio 1.1; PTT 26.8 sec (22.9-36.1); Prothrombin Time 14.8 sec (12.0-14.7)
[2021-11-02 18:25] LABS: Lactic Acid 0.9 mmol/L (0.5-2.2)
[2021-11-02 18:33] LABS: CKMB 1.9 ng/mL (0-6.6); Troponin I 0.104 ng/mL (< 0.028)
[2021-11-02 18:37] LABS: Band 17 % (5-11); Eosinophils 1 % (0-10); Lymphocytes 3 % (21-51); MDiff Complete? YES; Macrocytosis SLIGHT = 6-15 cells (100X) (0-5/hpf); Metamyelocyte 1 % (0-0); Monocytes 5 % (0-10); Neutrophil 73 % (42-75); Platelet Morphology Comment Appears Adequate; Polychromasia SLIGHT = 2-3 cells (100X) (0-2/hpf)
[2021-11-02 18:45] LABS: ALT (SGPT) 27 U/L (8-55); AST (SGOT) 35 U/L (5-34); Albumin 3.1 g/dL (3.5-5.0); Alkaline Phosphatase 165 U/L (40-110); Anion Gap 14 mmol/L (10-20); BUN (Urea Nitrogen) 29 mg/dL (9.8-20.1); Bilirubin, Direct 0.2 mg/dL (0.1-0.3); Bilirubin, Total 0.5 mg/dL (0.2-1.2); CK (CPK) 302 U/L (29-168); Calc. Creatinine Clearance 71 mL/min (70-130); Calcium 8.8 mg/dL (7.8-10.44); Carbon Dioxide 21 mmol/L (22-29); Chloride 119 mmol/L (98-107); Globulin 2.4 g/dL (2.4-3.5); Glucose 208 mg/dL (70-105); Lipase Less than 4 U/L (8-78); Magnesium 2.7 mg/dL (1.6-2.6); Phosphorus 4.8 mg/dL (2.3-4.7); Potassium 4.1 mmol/L (3.5-5.1); Protein, Total 5.5 g/dL (6.0-8.3); Sodium 150 mmol/L (136-145)
[2021-11-02] MEDS: Vasopressin 20 UNIT, Admixture Fee 1 EACH in Sodium Chloride 0.9% 50 ML IV SCH (20:06)
[2021-11-02 20:52] VITALS: TEMP 100
== END 2021-11-02 20:40 | disposition short-term general hospital (02) ==
LOC: SDC 15:22 → CCU 15:22 → SDC 11-02 20:40
PROC: 4A023N7 Measurement of Cardiac Sampling and Pressure, Left Heart, Percutaneous Approach (ICD-10-PCS; 2021-11-01)
PROC: B2111ZZ Fluoroscopy of Multiple Coronary Arteries using Low Osmolar Contrast (ICD-10-PCS; 2021-11-01)
PROC: 0BJ08ZZ Inspection of Tracheobronchial Tree, Via Natural or Artificial Opening Endoscopic (ICD-10-PCS; principal; 2021-11-02)
DX: Z00.5 Encounter for examination of potential donor of organ and tissue (principal); I25.10 Atherosclerotic heart disease of native coronary artery without angina pectoris; J96.00 Acute respiratory failure, unspecified whether with hypoxia or hypercapnia; I10 Essential (primary) hypertension; E11.9 Type 2 diabetes mellitus without complications; E78.5 Hyperlipidemia, unspecified; F17.200 Nicotine dependence, unspecified, uncomplicated; J90 Pleural effusion, not elsewhere classified
CPT/HCPCS: 36415; 36416; 71045; 71250; 74177; 80053; 81001; 81003; 82150; 82248; 82550; 82553; 82805; 83605; 83690; 83735; 84100; 84484; 85018; 85025; 85384; 85610; 85730; 87205; 93005; 93010; 93306; 93460; 94003; 94640; 94760; J1720; J1815; J1940; J2001; J2543; J3430; J3475; J3480; J3490; J7611; P9047; Q9967